=== PATIENT | male | born 1950 | race Caucasian/White ===

== ENCOUNTER 2018-10-11 11:44 | Emergency (ER) | payer OTHER ==
[2018-10-11] MEDS ORDERED: LIDOCAINE 1% W/EPI 1:100,000 MDV 20 ML VIAL ONE ×2 (12:14→12:16)
--- NOTE | 2018-10-11 12:21 | ER ---
Nurse's Notes [facility] Name: Isaías Durand Age: 68 yrs Sex: Male : 1950 Arrival Date: 10/11/2018 Time: 11:47 Bed 18 Private MD: Diagnosis: Laceration without foreign body of left hand Presentation: 10/11 11:54 Presenting complaint: Patient states: Laceration to top of L hand that occurred 1 hour ss ago while working in the garden with a pocket knife. Transition of care: patient was not received from another setting of care. Complicating Factors: There are no complicating factors for this patient. Onset of symptoms was October 11, 2018. Risk Assessment: Do you want to hurt yourself or someone else? Patient reports no desire to harm self or others. Initial Sepsis Screen: Does the patient meet any 2 criteria? No. Patient's initial sepsis screen is negative. Does the patient have a suspected source of infection? No. Patient's initial sepsis screen is negative. Care prior to arrival: None. 11:54 Method Of Arrival: Ambulatory ss 11:54 Acuity: MARSHALL 4 ss Historical: - Allergies: 11:57 No Known Allergies; ss - Immunization history:: Adult Immunizations up to date. - Social history:: Smoking status: Patient/guardian denies using tobacco. - Ebola Screening: : Patient denies exposure to infectious person Patient denies travel to an Ebola-affected area in the 21 days before illness onset. - Family history:: not pertinent. Screenin:05 Abuse screen: Denies threats or abuse. Denies injuries from another. Nutritional mg2 screening: No deficits noted. Tuberculosis screening: No symptoms or risk factors identified. Never had TB. Fall Risk None identified. Assessment: 12:30 General: Appears in no apparent distress. comfortable, Behavior is calm, cooperative. mg2 Pain: Complains of pain in dorsum of left hand Pain does not radiate. Pain currently is 3 out of 10 on a pain scale. Quality of pain is described as aching, Pain began suddenly, Is intermittent. Neuro: Level of Consciousness is awake, alert, obeys commands, Oriented to person, place, time, situation. Musculoskeletal: Circulation, motion, and sensation intact. Capillary refill < 3 seconds. Injury Description: Laceration sustained to dorsum of left hand is clean, 2.6 to 7.5 cm long, was sustained 1-2 hours ago. is bleeding a small amount. Vital Signs: 11:54 BP 110 / 75; Pulse 61; Resp 15; Temp 97.9(TE); Pulse Ox 96% on R/A; Weight 108.86 kg; Height 6 ft. 0 in. (182.88 cm); Pain 0/10; 13:07 BP 111 / 78; Pulse 62; Resp 18; Temp 98; Pulse Ox 100% on R/A; mg2 11:54 Body Mass Index 32.55 (108.86 kg, 182.88 cm) ED Course: 11:47 Patient arrived in ED. as 11:54 Arm band placed on right wrist. 11:56 Triage completed. 11:58 Nathen Cardoso MD is Attending Physician. [facility] 12:02 Hernando Arredondo, RN is Primary Nurse. mg2 13:05 Assist provider with laceration repair on dorsum of left hand that was between 2.6 to mg2 7.5 cm using sutures. Set up tray. Performed by Nathen Cardoso MD Dressed with 4X4s, Neosporin, Patient tolerated well. 4 stitches done. Patient did not have IV access during this emergency room visit. 13:07 Patient has correct armband on for positive identification. mg2 Administered Medications: 12:48 Drug: Lidocaine-Epinephrine -1%: (1:100,000) 8 ml {Note: given by the provider.} mg2 Volume: 20 ml; Route: Infiltration; Outcome: 12:19 Discharge ordered by . chavo 13:07 Discharged to home ambulatory, with family. mg2 13:07 Condition: stable 13:07 Discharge instructions given to patient, family, Instructed on discharge instructions, follow up and referral plans. medication usage, Demonstrated understanding of instructions, follow-up care, medications, wound care, Prescriptions given X 13:07 Patient left the ED. mg2 Signatures: Nathen Cardoso MD MD cha Martinez, Amelia as Smirch, Shelby, RN RN Hernando Arredondo, DWAYNE RN mg2
--- NOTE | 2018-10-11 12:23 | EDPHYS ---
Physician Documentation [facility] Name: Isaías Durand Age: 68 yrs Sex: Male : 1950 Arrival Date: 10/11/2018 Time: 11:47 Bed 18 Private MD: QUAN Physician Nathen Cardoso HPI: 10/11 12:11 This 68 yrs old Male presents to ER via Ambulatory with complaints of chavo Laceration To Hand. 12:11 The patient has a laceration related to: doing crafts, occurred at home. The chavo laceration(s) is(are) located on the left hand. Onset: The symptoms/episode began/occurred just prior to arrival. Associated signs and symptoms: The patient has no apparent associated signs or symptoms. The patient has not experienced similar symptoms in the past. Historical: - Allergies: 11:57 No Known Allergies; ss - Immunization history:: Adult Immunizations up to date. - Social history:: Smoking status: Patient/guardian denies using tobacco. - Ebola Screening: : Patient denies exposure to infectious person Patient denies travel to an Ebola-affected area in the 21 days before illness onset. - Family history:: not pertinent. ROS: 12:11 Constitutional: Negative for fever, chills, and weight loss, Eyes: Negative for injury, chavo pain, redness, and discharge, ENT: Negative for injury, pain, and discharge, Neck: Negative for injury, pain, and swelling, Cardiovascular: Negative for chest pain, palpitations, and edema, Respiratory: Negative for shortness of breath, cough, wheezing, and pleuritic chest pain, Abdomen/GI: Negative for abdominal pain, nausea, vomiting, diarrhea, and constipation, Back: Negative for injury and pain, : Negative for injury, bleeding, discharge, and swelling, Skin: Negative for injury, rash, and discoloration, Neuro: Negative for headache, weakness, numbness, tingling, and seizure, Psych: Negative for depression, anxiety, suicide ideation, homicidal ideation, and hallucinations, Allergy/Immunology: Negative for hives, rash, and allergies, Endocrine: Negative for neck swelling, polydipsia, polyuria, polyphagia, and marked weight changes. 12:11 MS/extremity: Positive for laceration, pain, of the dorsum of left hand. Exam: 12:11 Constitutional: This is a well developed, well nourished patient who is awake, alert, chavo and in no acute distress. Head/Face: Normocephalic, atraumatic. Eyes: Pupils equal round and reactive to light, extra-ocular motions intact. Lids and lashes normal. Conjunctiva and sclera are non-icteric and not injected. Cornea within normal limits. Periorbital areas with no swelling, redness, or edema. ENT: Nares patent. No nasal discharge, no septal abnormalities noted. Tympanic membranes are normal and external auditory canals are clear. Oropharynx with no redness, swelling, or masses, exudates, or evidence of obstruction, uvula midline. Mucous membranes moist. Neck: Trachea midline, no thyromegaly or masses palpated, and no cervical lymphadenopathy. Supple, full range of motion without nuchal rigidity, or vertebral point tenderness. No Meningismus. Chest/axilla: Normal chest wall appearance and motion. Nontender with no deformity. No lesions are appreciated. Cardiovascular: Regular rate and rhythm with a normal S1 and S2. No gallops, murmurs, or rubs. Normal PMI, no JVD. No pulse deficits. Respiratory: Lungs have equal breath sounds bilaterally, clear to auscultation and percussion. No rales, rhonchi or wheezes noted. No increased work of breathing, no retractions or nasal flaring. Abdomen/GI: Soft, non-tender, with normal bowel sounds. No distension or tympany. No guarding or rebound. No evidence of tenderness throughout. Back: No spinal tenderness. No costovertebral tenderness. Full range of motion. Male : Normal genitalia with no discharge or lesions. MS/ Extremity: Pulses equal, no cyanosis. Neurovascular intact. Full, normal range of motion. Neuro: Awake and alert, GCS 15, oriented to person, place, time, and situation. Cranial nerves II-XII grossly intact. Motor strength 5/5 in all extremities. Sensory grossly intact. Cerebellar exam normal. Normal gait. Psych: Awake, alert, with orientation to person, place and time. Behavior, mood, and affect are within normal limits. 12:11 Skin: Appearance: Color: normal in color, Temperature: normal temperature, Moisture: normal moisture, petechiae, not noted, ecchymosis, not noted, flushing, not noted, diaphoresis is not appreciated, swelling, is not appreciated, injury, laceration(s), the wound is approximately 4 cm(s), with a depth of 0.5 cm(s), of the left hand. Vital Signs: 11:54 BP 110 / 75; Pulse 61; Resp 15; Temp 97.9(TE); Pulse Ox 96% on R/A; Weight 108.86 kg; ss Height 6 ft. 0 in. (182.88 cm); Pain 0/10; 13:07 BP 111 / 78; Pulse 62; Resp 18; Temp 98; Pulse Ox 100% on R/A; mg2 11:54 Body Mass Index 32.55 (108.86 kg, 182.88 cm) ss Laceration: 12:11 Wound Repair of 4cm ( 1.6in ) subcutaneous laceration to left hand and dorsum of left chavo hand. Linear shaped.. Distal neuro/vascular/tendon intact. Anesthesia: Local anesthetic administered with 5 mls of 1% lidocaine w/ Epi. Wound prep: Simple cleansing with betadine. Skin closed with 4 5-0 Prolene using interrupted sutures and sterile technique. Skin closed with 4 5-0 Prolene using vertical mattress sutures and sterile technique. Dressed with Neosporin. Patient tolerated well. MDM: 11:58 Patient medically screened. [facility] 12:17 Data reviewed: vital signs, nurses notes. [facility] 10/11 12:11 Order name: Dressing - Wound; Complete Time: 12:49 [facility] 10/11 12:11 Order name: Gloves, Sterile; Complete Time: 12:49 [facility] 10/11 12:11 Order name: Setup Suture Tray; Complete Time: 12:49 [facility] 10/11 12:11 Order name: Wound Care; Complete Time: 12:49 [facility] Administered Medications: 12:48 Drug: Lidocaine-Epinephrine -1%: (1:100,000) 8 ml {Note: given by the provider.} mg2 Volume: 20 ml; Route: Infiltration; Disposition: 10/11/18 12:19 Discharged to Home. Impression: Laceration without foreign body of left hand. - Condition is Stable. - Discharge Instructions: Laceration Care, Adult, Laceration Care, Adult, [id number]. - Prescriptions for Keflex 500 mg Oral Capsule - take 1 capsule by ORAL route every 6 hours for 10 days; 40 capsule. Tylenol- Codeine #3 300-30 mg Oral Tablet - take 2 tablets by ORAL route every 6 hours As needed; 28 tablet. - Medication Reconciliation Form, Thank You Letter, Antibiotic Education, Prescription Opioid Use form. - Follow up: Private Physician; When: 2 - 3 days; Reason: Recheck today's complaints, Continuance of care, Re-evaluation by your physician. - Problem is new. - Symptoms have improved. Signatures: Nathen Cardoso MD MD cha Smirch, Shelby, RN RN ss Hernando Arredondo RN RN mg2 Corrections: (The following items were deleted from the chart) 13:07 12:19 10/11/2018 12:19 Discharged to Home. Impression: Laceration without foreign body mg2 of left hand. Condition is Stable. Forms are Medication Reconciliation Form, Thank You Letter, Antibiotic Education, Prescription Opioid Use. Follow up: Private Physician; When: 2 - 3 days; Reason: Recheck today's complaints, Continuance of care, Re-evaluation by your physician. Problem is new. Symptoms have improved. chavo
== END 2018-10-11 13:07 | disposition home or self-care (01) ==
LOC: ER 11:44
PROC: 0JQK0ZZ Repair Left Hand Subcutaneous Tissue and Fascia, Open Approach (ICD-10-PCS; principal; 2018-10-11)
DX: S61.412A Laceration without foreign body of left hand, initial encounter (principal); W26.0XXA Contact with knife, initial encounter; Y93.89 Activity, other specified
CPT/HCPCS: 99283

== ENCOUNTER 2021-02-06 13:55 | Emergency (ER) | payer OTHER ==
--- OUTSIDE RECORDS SUMMARY | 2021-02-06 13:59 | XMS REPORT | Continuity of Care Document ---
:1950 Author Organization [facility] t Address [address] [place] [address] [address] [place] [address] Care Team Providers Name Role Phone Nurse, Pob Immunization Attending Clinician Unavailable Paramjit Lopez DO Attending Clinician Problems This patient has no known problems. Allergies, Adverse Reactions, Alerts This patient has no known allergies or adverse reactions. Social History Social Habit Start Date Stop Date Quantity Comments Source Sex Assigned At [birth year] [facility] 00:00:00 00:00:00 [facility] Smoking Status Start Date Stop Date Source Unknown if ever smoked [facility] Medications This patient has no known medications. Immunizations Ordered Filled Immunization Date Status Comments Sourc e Immunization Name Name SARS-COV-2 COVID-19 2020-10-15 Completed Unive rsity of PFIZER VACCINE 00:00:00 [facility] Procedures Procedure Date / Time Performed Performing Clinician Velc e SARS-COV-2 COVID-19 2020-10-15 13:13:23 Doctor Unassigned, No [facility] [place] VACCINE,0.3ML,IM Name [facility] (PFIZER) Encounters Start End Encounter Admission Attending Care Care Encounter Source Date/Time Date/Time Type Type Clinicians Facility Department ID 2020-10-15 2020-10-15 Imm/Inj Nurse, Adc Pob Immunization [facility] [id number] [facility] 08:11:26 08:11:50 Visit Vadim Lopez [id number] [facility] [id number] [facility] [phone] [place] [address] [address] Results This patient has no known results.
--- NOTE | 2021-02-06 15:47 | RAD REPORT ---
EXAM DESCRIPTION: [place] Single View02/06/2021 3:24 pm CLINICAL HISTORY: Chest pain COMPARISON: 2016 FINDINGS: The lungs appear clear of acute infiltrate. The heart is normal size IMPRESSION: No acute abnormalities displayed
--- NOTE | 2021-02-06 16:53 | ER ---
Nurse's Notes [facility] Name: Isaías Durand Age: 70 yrs Sex: Male : 1950 Arrival Date: 02/06/2021 Time: 13:56 Bed 10 Private MD: Diagnosis: Coronavirus infection, unspecified;Dyspnea;Cough Presentation: 02/06 14:35 Chief complaint: Patient states: chest pain, shortness of breath x3 days. pt dx with [place] covid on 01-30-2021. Coronavirus screen: Vaccine status: Patient reports receiving the 2nd dose of the covid vaccine. Client reports previous positive COVID test result. Ebola Screen: Patient denies travel to an Ebola-affected area in the 21 days before illness onset. Initial Sepsis Screen: Does the patient meet any 2 criteria? No. Patient's initial sepsis screen is negative. Does the patient have a suspected source of infection? No. Patient's initial sepsis screen is negative. Risk Assessment: Do you want to hurt yourself or someone else? Patient reports no desire to harm self or others. Onset of symptoms was January 30, 2021. 14:35 Method Of Arrival: Ambulatory 14:35 Acuity: MARSHALL 3 [place] Triage Assessment: 14:37 General: Appears in no apparent distress. Behavior is calm, cooperative. Pain: Denies [place] pain. Historical: - Allergies: 14:37 No Known Allergies; [place] - PMHx: 14:37 None; [place] - PSHx: 14:37 None; [place] - Immunization history:: Adult Immunizations up to date. - Social history:: Smoking status: Patient denies any tobacco usage or history of. Assessment: 14:44 Reassessment: ekg completed 1444. Cardiovascular: Rhythm is sinus rhythm. [place] Vital Signs: 14:35 BP 155 / 75; Pulse 60; Resp 18; Temp 98.5; Pulse Ox 100% ; Weight 108.86 kg; Height 6 [place] ft. 0 in. (182.88 cm); 14:35 Body Mass Index 32.55 (108.86 kg, 182.88 cm) [place] ED Course: 13:56 Patient arrived in ED. am2 14:37 Triage completed. [place] 14:37 Arm band placed on left wrist. 14:45 EKG done, by ED staff, reviewed by Nathen Cardoso MD. 15:24 Chest Single View XRAY In Process Unspecified. EDDC 16:08 Nathen Cardoso MD is Attending Physician. chavo 17:08 Neena Alonso, RN is Primary Nurse. jl7 17:29 No provider procedures requiring assistance completed. Patient did not have IV access jl7 during this emergency room visit. Administered Medications: 16:36 CANCELLED (Duplicate Order): predniSONE 40 mg PO once [facility] 17:28 Drug: Aspirin Chewable Tablet 324 mg Route: PO; jl7 17:29 Follow up: Response: Medication administered at discharge. jl7 17:28 Drug: Pepcid (famotidine) 40 mg Route: PO; jl7 17:29 Follow up: Response: Medication administered at discharge. jl7 17:28 Drug: Zithromax (azithromycin) 500 mg Route: PO; jl7 17:29 Follow up: Response: Medication administered at discharge. jl7 17:28 Drug: predniSONE 60 mg Route: PO; jl7 17:29 Follow up: Response: Medication administered at discharge. jl7 Outcome: 16:52 Discharge ordered by . [facility] 17:29 Discharged to home ambulatory. jl7 17:29 Condition: stable 17:29 Discharge instructions given to patient, Instructed on discharge instructions, follow up and referral plans. medication usage, Demonstrated understanding of instructions, follow-up care, medications, Prescriptions given X 5 17:30 Patient left the ED. jl7 Signatures: Dispatcher [employer] [facility] Nathen Cardoso MD MD cha Leal, Jahala, RN RN Jenae Chiang 2 Radha Rogers RN DWAYNE [place]
--- NOTE | 2021-02-06 16:53 | EDPHYS ---
Physician Documentation [facility] Name: Isaías Durand Age: 70 yrs Sex: Male : 1950 Arrival Date: 02/06/2021 Time: 13:56 Bed 10 Private MD: ED Physician Nathen Cardoso HPI: 02/06 16:36 This 70 yrs old Male presents to ER via Ambulatory with complaints of chavo Shortness Of Breath, covid+, Chest Congestion. 16:36 This 70 yrs old Male presents to ER via Ambulatory with complaints of chavo Shortness Of Breath, covid+, Chest Congestion. 16:36 The patient has shortness of breath with light activity. Onset: The symptoms/episode chavo began/occurred 7 day(s) ago. Duration: The symptoms are continuous, and are steadily getting worse. The patient's shortness of breath has no apparent modifying factors. Associated signs and symptoms: Pertinent positives: non-productive cough. Severity of symptoms: At their worst the symptoms were mild in the emergency department the symptoms are unchanged. The patient has not experienced similar symptoms in the past. Historical: - Allergies: 14:37 No Known Allergies; [place] - PMHx: 14:37 None; [place] - PSHx: 14:37 None; [place] - Immunization history:: Adult Immunizations up to date. - Social history:: Smoking status: Patient denies any tobacco usage or history of. ROS: 16:46 Constitutional: Negative for fever, chills, and weight loss, Eyes: Negative for injury, chavo pain, redness, and discharge, ENT: Negative for injury, pain, and discharge, Neck: Negative for injury, pain, and swelling, Cardiovascular: Negative for chest pain, palpitations, and edema, Abdomen/GI: Negative for abdominal pain, nausea, vomiting, diarrhea, and constipation, Back: Negative for injury and pain, : Negative for injury, bleeding, discharge, and swelling, MS/Extremity: Negative for injury and deformity, Skin: Negative for injury, rash, and discoloration, Neuro: Negative for headache, weakness, numbness, tingling, and seizure, Psych: Negative for depression, anxiety, suicide ideation, homicidal ideation, and hallucinations, Allergy/Immunology: Negative for hives, rash, and allergies, Endocrine: Negative for neck swelling, polydipsia, polyuria, polyphagia, and marked weight changes, Hematologic/Lymphatic: Negative for swollen nodes, abnormal bleeding, and unusual bruising. 16:46 Cardiovascular: Negative for chest pain, edema, orthopnea, palpitations, paroxysmal nocturnal dyspnea. Exam: 16:46 Constitutional: This is a well developed, well nourished patient who is awake, alert, chavo and in no acute distress. Head/Face: Normocephalic, atraumatic. Eyes: Pupils equal round and reactive to light, extra-ocular motions intact. Lids and lashes normal. Conjunctiva and sclera are non-icteric and not injected. Cornea within normal limits. Periorbital areas with no swelling, redness, or edema. ENT: Nares patent. No nasal discharge, no septal abnormalities noted. Tympanic membranes are normal and external auditory canals are clear. Oropharynx with no redness, swelling, or masses, exudates, or evidence of obstruction, uvula midline. Mucous membranes moist. Neck: Trachea midline, no thyromegaly or masses palpated, and no cervical lymphadenopathy. Supple, full range of motion without nuchal rigidity, or vertebral point tenderness. No Meningismus. Chest/axilla: Normal chest wall appearance and motion. Nontender with no deformity. No lesions are appreciated. Cardiovascular: Regular rate and rhythm with a normal S1 and S2. No gallops, murmurs, or rubs. Normal PMI, no JVD. No pulse deficits. Respiratory: Lungs have equal breath sounds bilaterally, clear to auscultation and percussion. No rales, rhonchi or wheezes noted. No increased work of breathing, no retractions or nasal flaring. Abdomen/GI: Soft, non-tender, with normal bowel sounds. No distension or tympany. No guarding or rebound. No evidence of tenderness throughout. Back: No spinal tenderness. No costovertebral tenderness. Full range of motion. Male : Normal genitalia with no discharge or lesions. Skin: Warm, dry with normal turgor. Normal color with no rashes, no lesions, and no evidence of cellulitis. MS/ Extremity: Pulses equal, no cyanosis. Neurovascular intact. Full, normal range of motion. Neuro: Awake and alert, GCS 15, oriented to person, place, time, and situation. Cranial nerves II-XII grossly intact. Motor strength 5/5 in all extremities. Sensory grossly intact. Cerebellar exam normal. Normal gait. Psych: Awake, alert, with orientation to person, place and time. Behavior, mood, and affect are within normal limits. 16:47 ECG was reviewed by the Attending Physician. [facility] Vital Signs: 14:35 BP 155 / 75; Pulse 60; Resp 18; Temp 98.5; Pulse Ox 100% ; Weight 108.86 kg; Height 6 [place]well ft. 0 in. (182.88 cm); 14:35 Body Mass Index 32.55 (108.86 kg, 182.88 cm) [place] MDM: 16:08 Patient medically screened. [facility] 16:48 Differential diagnosis: Anemia Anxiety Reaction Bronchitis CHF exacerbation, Chronic chavo Obstructive Pulmonary Disease bronchitis, flu, pneumonia, Pneumothorax pulmonary edema, Pulmonary Embolism Sepsis Unstable Angina. Antibiotic administration: The patient is discharged and will get outpatient antibiotics, Zithromax. The patient's Wells Deep Vein Thrombosis Score was calculated as follows: Total Score: 0-2 Pts- Low Risk. Differential Diagnosis: Bronchitis Influenza Upper Respiratory Infection Sinusitis Asthma Exacerbation Viral Syndrome Pneumonia. The patient's pulmonary embolism risk score was calculated as follows: Total Score: 0-2 points. This patient was found to be at low risk for a pulmonary embolism by using the Well's assessment criteria. Immunization status: Pneumococcal vaccine: Influenza vaccine: Data reviewed: vital signs, nurses notes, EKG, radiologic studies, plain films. Data interpreted: equipment monitor phototypesetting: rate is 60 beats/min, rhythm is regular, Pulse oximetry: on room air is 100 %. Test interpretation: by ED physician or midlevel provider: ECG, plain radiologic studies. Counseling: I had a detailed discussion with the patient and/or guardian regarding: the historical points, exam findings, and any diagnostic results supporting the discharge/admit diagnosis, lab results, radiology results. 02/06 14:46 Order name: Chest Single View XRAY; Complete Time: 16:35 [place] 02/06 14:38 Order name: EKG; Complete Time: 14:39 [place] 02/06 14:38 Order name: EKG - Nurse/Tech; Complete Time: 14:44 [place]well EC:47 Rate is 61 beats/min. Rhythm is regular. QRS [place] is Normal. WI interval is normal. QRS chavo interval is normal. QT interval is normal. No Q waves. T waves are Normal. No ST changes noted. Clinical impression: NSR w/ Non-specific ST/T Changes and No evidence of ischemia. Interpreted by me. Reviewed by me. Administered Medications: 16:36 CANCELLED (Duplicate Order): predniSONE 40 mg PO once chavo 17:28 Drug: Aspirin Chewable Tablet 324 mg Route: PO; jl7 17:29 Follow up: Response: Medication administered at discharge. jl7 17:28 Drug: Pepcid (famotidine) 40 mg Route: PO; jl7 17:29 Follow up: Response: Medication administered at discharge. jl7 17:28 Drug: Zithromax (azithromycin) 500 mg Route: PO; jl7 17:29 Follow up: Response: Medication administered at discharge. jl7 17:28 Drug: predniSONE 60 mg Route: PO; jl7 17:29 Follow up: Response: Medication administered at discharge. [email or web address] Disposition Summary: 02/06/21 16:52 Discharge Ordered Location: Home chavo Problem: new chavo Symptoms: have improved chavo Condition: Stable chavo Diagnosis - Coronavirus infection, unspecified chavo - Dyspnea chavo - Cough chavo Followup: chavo - With: Private Physician - When: 2 - 3 days - Reason: Recheck today's complaints, Continuance of care, Re-evaluation by your physician Discharge Instructions: - Discharge Summary Sheet chavo - Upper Respiratory Infection, Adult chavo - Cool Mist Vaporizer chavo - Upper Respiratory Infection, Adult, [id number] chavo - Cough, Adult, [id number] chavo - Aspirin and Your Heart chavo - Cough, Adult chavo - COVID-19 chavo - COVID-19 Frequently Asked Questions [facility] - 10 Things You Can Do to Manage Your COVID-19 Symptoms at Home - [facility] chavo - COVID-19: Quarantine vs. Isolation - [facility] Forms: - Medication Reconciliation Form chavo - Thank You Letter chavo - Antibiotic Education chavo - Prescription Opioid Use [facility] Prescriptions: - Singulair 10 mg Oral tablet - take 1 tablet by ORAL route once daily; 30 tablet; Refills: 0, Product chavo Selection Permitted - albuterol sulfate 90 mcg/actuation Inhalation HFA aerosol inhaler - inhale 2 puff by INHALATION route every 4-6 hours; 1 Pump; Refills: 0, Product chavo Selection Permitted - ivermectin 3 mg Oral tablet - take 5 tablet by ORAL route once daily 15 mg po daily on days 1,3 and 5.; 15 chavo tablet; Refills: 0, Product Selection Permitted - Pepcid 20 mg Oral Tablet - take 1 tablet by ORAL route every 12 hours for 30 days; 60 tablet; Refills: 0, chavo Product Selection Permitted - Zithromax 500 mg Oral Tablet - take 1 tablet by ORAL route once daily for 4 days; 4 tablet; Refills: 0, chavo Product Selection Permitted Signatures: Dispatcher [employer] Nathen Tapia MD MD cha Leal, Jahala, RN RN jl7 Radha Rogers RN RN [place] Corrections: (The following items were deleted from the chart) 16:36 16:35 predniSONE 40 mg PO once ordered. chavo tony
[2021-02-06] MEDS ORDERED: predniSONE 20 MG TAB ONE (17:20)
[2021-02-06] MEDS ORDERED: ASPIRIN EC 81 MG TAB PO ONE (17:20)
[2021-02-06] MEDS ORDERED: FAMOTIDINE 20 MG TAB ONE (17:20)
[2021-02-06] MEDS ORDERED: AZITHROMYCIN 250 MG TAB ONE (17:21)
[2021-02-06 17:36] VITALS: BP 155/75; TEMP 98.5; O2SAT 100
== END 2021-02-06 17:30 | disposition home or self-care (01) ==
LOC: ER 13:55
DX: U07.1 COVID-19 (principal); R05.9 Cough, unspecified; R06.00 Dyspnea, unspecified
CPT/HCPCS: 93005; 71045; 99284; J7512